=== PATIENT | male | born 1965 | race African-American/Black ===

== ENCOUNTER 2023-04-29 23:36 | Emergency (ER) | payer OTHER ==
[2023-04-30 00:33] VITALS: BP 141/63; PULSE 68; RESP 17; TEMP 97.3
== END 2023-04-30 00:52 | disposition home or self-care (01) ==
LOC: EMS 23:36
DX: Z03.821 Encounter for observation for suspected ingested foreign body ruled out (principal)
CPT/HCPCS: 71045; 74018; 99284